=== PATIENT | male | born 1995 | race Caucasian/White ===

== ENCOUNTER 2018-10-19 16:20 | Emergency (ER) | payer SELFPAY ==
[2018-10-19 16:43] VITALS: BP 118/84
[2018-10-19] MEDS ORDERED: Tetan/Diph/Pertus SYR(Tdap)* 0.5 ML SYR(BOOSTRIX) use SYR IM ONE (16:54)
--- NOTE | 2018-10-19 16:56 | UC ---
Bite Injury/Animal HPI - HPI Summary HPI Summary: Bitten by a dog yesterday. Persistent pain in the area. - History of Current Complaint Chief Complaint: UCBiteInjury Stated Complaint: DOG BITE Time Seen by Provider: 10/19/18 16:44 Hx Obtained From: Patient Severity Currently: Mild Severity Initially: Moderate Pain Intensity: 3 Onset/Duration: Sudden Onset Type of Bite: Pet Has Animal Been Immunized?: Yes Character: Puncture Aggravating Factor(s): Exertion Alleviating Factor(s): Rest Associated Signs And Symptoms: Positive: Erythema, Swelling, Numbness/Tingling. Negative: Fever Animal Available for Observation: Yes - Allergies/Home Medications Allergies/Adverse Reactions: Allergies Allergy/AdvReac Type Severity Reaction Status Date / Time Penicillins Allergy Intermediate Hives Verified 10/19/18 16:43 PMH/Surg Hx/FS Hx/Imm Hx Previously Healthy: Yes - Surgical History Surgical History: None Surgery Procedure, Year, and Place: denies - Family History Known Family History: Positive: Diabetes - Social History Occupation: Employed Full-time Lives: Alone Alcohol Use: Weekly Alcohol Amount: 3 times weekly Substance Use Type: None Smoking Status (MU): Former Smoker Amount Used/How Often: 2 packs weekly Length of Time of Smoking/Using Tobacco: started ~ age 17 Have You Smoked in the Last Year: Yes - Immunization History Most Recent Tetanus Shot: unknown Review of Systems All Other Systems Reviewed And Are Negative: Yes Skin: Positive: Other - dog bite wound Neurological: Positive: Numbness - around the bite wound Physical Exam Triage Information Reviewed: Yes Appearance: Well-Appearing, No Pain Distress, Well-Nourished Vital Signs: Initial Vital Signs Temp 98.1 F 10/19/18 16:38 Pulse 82 10/19/18 16:38 Resp 15 10/19/18 16:38 BP 118/84 10/19/18 16:38 Pulse Ox 99 10/19/18 16:38 Vital Signs Reviewed: Yes Eyes: Positive: Conjunctiva Clear Neck exam: Normal Respiratory Exam: Normal Cardiovascular Exam: Normal Musculoskeletal Exam: Normal Neurological Exam: Normal Psychological Exam: Normal Skin: Positive: Other - bite wound left lower leg with 3 punctures. Mild erythema/ warmth/ swelling and tenderness. Bite Injury Course/Dx - Differential Dx/Diagnosis Differential Diagnosis/HQI/PQRI: Cellulitis, Laceration, Puncture Provider Diagnosis: Dog bite of left lower leg with infection Discharge - Sign-Out/Discharge Documenting (check all that apply): Patient Departure All imaging exams completed and their final reports reviewed: No Studies - Discharge Plan Condition: Stable Disposition: HOME Prescriptions: Amoxicillin/Clavulanate TAB* [Augmentin TAB 875*] 875 mg PO BID #14 tab Patient Education Materials: Animal Bite (ED), Cellulitis (ED), Amoxicillin/ Clavulanate Potassium (By mouth), Diphtheria/Acellular Pertussis/Tetanus Vaccine (By injection) Referrals: No Primary Care Phys,NOPCP [Primary Care Provider] - - Billing Disposition and Condition Condition: STABLE Disposition: Home
== END 2018-10-19 17:18 | disposition home or self-care (01) ==
LOC: UCCORT 16:20
DX: S71.152A Open bite, left thigh, initial encounter (principal); L08.9 Local infection of the skin and subcutaneous tissue, unspecified; W54.0XXA Bitten by dog, initial encounter; Y92.9 Unspecified place or not applicable; Z88.0 Allergy status to penicillin; Z87.891 Personal history of nicotine dependence
CPT/HCPCS: 90471; 90715; 99202; G0463